=== PATIENT | male | born 1930 | race American Indian/Alaskan Native ===

== ENCOUNTER 2016-10-29 09:16 | Inpatient (IN) | payer MEDICARE ==
[2016-10-29 10:21] LABS: Hematocrit 30.2 % (35.5-45.6); Hemoglobin 9.6 gm/dl (11.8-15.2); Mean Corpuscular HGB Conc 32 % (32-34); Mean Corpuscular Volume 81 fl (84-94); Red Blood Count 3.74 M/mm3 (3.65-5.03); Red Cell Distribution Width 16.6 % (13.2-15.2)
[2016-10-29 10:23] LABS: Mean Corpuscular Hemoglobin 26 pg (28-32); Platelet Count 251 K/mm3 (140-440); White Blood Count 9.3 K/mm3 (4.5-11.0)
[2016-10-29 10:37] LABS: Alanine Aminotransferase 6 units/L (7-56); Albumin 3.8 g/dL (3.9-5); Albumin/Globulin Ratio 1.1 %; Alkaline Phosphatase 99 units/L (35-129); Anion Gap 19 mmol/L; BUN/Creatinine Ratio 9.09; Blood Urea Nitrogen 10 mg/dL (9-20); Calcium 9.2 mg/dL (8.4-10.2); Carbon Dioxide 24 mmol/L (22-30); Chloride 104.8 mmol/L (98-107); Glucose 103 mg/dL (75-100); Sodium 144 mmol/L (137-145); Total Protein 7.4 g/dL (6.3-8.2)
[2016-10-29 10:55] LABS: Anisocytosis 1+; Basophils % (Manual) 0 % (0.0-1.8); Blastocytes % (Manual) 0 %
[2016-10-29 10:56] LABS: Poikilocytosis 1+
[2016-10-29 10:58] LABS: Acanthocytes 1+; Burr Cells Few; Diff Status Complete; Elliptocytes 1+; Helmet Cells Few; Ovalocytes Few
[2016-10-29 11:07] LABS: Urine Drugs of Abuse Note Disclamer
[2016-10-29 11:13] LABS: Bilirubin,Urine NEG (Negative); Blood,Urine NEG (Negative); Ketones,Urine NEG (Negative); Leukocyte Esterase,Urine NEG (Negative); Mucus,Urine FEW /HPF; Nitrite,Urine NEG (Negative); Protein,Urine <15 mg/dL mg/dL (Negative); Urobilinogen,Urine < 2.0 mg/dL (<2.0); WBC,Urine < 1.0 /HPF (0.0-6.0)
--- NOTE | 2016-10-29 11:16 | Emergency Department Report ---
ED General Adult HPI - General Chief complaint: Syncope Stated complaint: HEADACHE/DIZZY Time Seen by Provider: 10/29/16 10:21 Source: EMS Mode of arrival: Stretcher Limitations: No Limitations - History of Present Illness Initial comments: He patient was transported via EMS. According to the triage note the patient had a syncopal or there syncopal event. Per the EMS patient care record, his chief complaint was a headache. On arrival he is not complaining of a headache at all. However, he states he does have frequent headaches. His complaint now is that he is weak and it's difficult for him to walk. Apparently this is been the case for quite some time. He references a recent admission to [facility] where apparently after hospitalization he was referred to rehabilitation. At this time he states that he lives with family. He was found with the presence of multiple bedbugs. His family did not present to the emergency department as of yet. He largely has no active complaints at this time. The patient is able to inform me if he had a syncopal episode or not. -: month(s) Location: head (none frequent headaches no significant headache at this time) Consistency: intermittent Associated Symptoms: denies other symptoms - Related Data Home Medications Medication Instructions Recorded Confirmed Last Taken Aspirin [Baby Aspirin] 81 mg PO QDAY 04/18/13 10/29/16 04/17/13 08:00 Sitagliptin Phos/Metformin HCl 1 tab PO QDAY 04/18/13 10/29/16 04/17/13 08:00 [Janumet XR 100-1,000 mg] amLODIPine [Norvasc] 10 mg PO DAILY 04/18/13 10/29/16 04/17/13 08:00 Previous Rx's Medication Instructions Recorded Last Taken Type Clotrimazole [Itch Relief] 15 gm TP BID 28 Days 11/29/15 Unknown Rx Polyethylene Glycol 3350 [Miralax 17 gm PO QDAY #20 packet 08/07/16 Unknown Rx 3350] Allergies Allergy/AdvReac Type Severity Reaction Status Date / Time No Known Allergies Allergy Verified 02/22/15 22:04 ED Review of Systems ROS: Stated complaint: HEADACHE/DIZZY Other details as noted in HPI Comment: Unobtainable due to pts medical conditions (Limited secondary to age but no active complaints) ED Past Medical Hx - Past Medical History Previous Medical History?: Yes Hx Hypertension: Yes Hx Diabetes: Yes Additional medical history: chronic back pain. BED BUGS - Surgical History Past Surgical History?: Yes Additional Surgical History: hernia repair - Social History Smoking Status: Never Smoker Substance Use Type: None - Medications Home Medications: Home Medications Medication Instructions Recorded Confirmed Last Taken Type Aspirin [Baby Aspirin] 81 mg PO QDAY 04/18/13 10/29/16 04/17/13 08:00 History Sitagliptin Phos/Metformin HCl 1 tab PO QDAY 04/18/13 10/29/16 04/17/13 08:00 History [Janumet XR 100-1,000 mg] amLODIPine [Norvasc] 10 mg PO DAILY 04/18/13 10/29/16 04/17/13 08:00 History Clotrimazole [Itch Relief] 15 gm TP BID 28 Days 11/29/15 10/29/16 Unknown Rx Polyethylene Glycol 3350 [Miralax 17 gm PO QDAY #20 packet 08/07/16 10/29/16 Unknown Rx 3350] ED Physical Exam - General Limitations: No Limitations General appearance: alert, in no apparent distress - Head Head exam: Present: atraumatic, normocephalic - Eye Eye exam: Present: normal appearance. Absent: scleral icterus - ENT ENT exam: Present: normal exam, mucous membranes moist - Neck Neck exam: Present: normal inspection. Absent: tenderness, meningismus - Respiratory Respiratory exam: Present: normal lung sounds bilaterally. Absent: respiratory distress - Cardiovascular Cardiovascular Exam: Present: regular rate, normal rhythm. Absent: systolic murmur, diastolic murmur, rubs, gallop - GI/Abdominal GI/Abdominal exam: Present: soft, normal bowel sounds. Absent: distended, tenderness, guarding, rebound, rigid - Rectal Rectal exam: Present: deferred - Extremities Exam Extremities exam: Present: normal inspection - Back Exam Back exam: Present: normal inspection - Neurological Exam Neurological exam: Present: alert, oriented X3, CN II-XII intact. Absent: motor sensory deficit - Psychiatric Psychiatric exam: Present: normal affect, normal mood - Skin Skin exam: Present: warm, dry, intact, normal color, other (presence of bedbugs noted on clothing.). Absent: rash ED Course Vital Signs 10/29/16 10/29/16 10/29/16 09:35 15:48 15:50 Temperature 98.6 F Pulse Rate 96 H 88 Respiratory 20 18 18 Rate Blood Pressure 126/76 Blood Pressure 147/82 [Left] O2 Sat by Pulse 98 Oximetry - Reevaluation(s) Reevaluation #1: 10/29/16 11:15 Patient is referred to case management. He is been isolated due to the presence of bedbugs. The manager case stated that he was unable to find the patient's family. He also stated that the patient had requested admission and transfer to a shelter. In consideration of his possible syncope he is admitted for further medical evaluation and possible shelter transfer. 10/29/16 18:15 Reevaluation #2: Discussed with Dr. Whatley. A CT the head was ordered further workup and review of data per Dr. Whatley. The patient was admitted to the hospitalist service. 10/29/16 18:18 ED Medical Decision Making - Lab Data Result diagrams: 10/29/16 09:46 10/29/16 09:46 Laboratory Results - last 24 hr 10/29/16 10/29/16 10/29/16 09:46 09:46 09:46 WBC 9.3 RBC 3.74 Hgb 9.6 L Hct 30.2 L MCV 81 L MCH 26 L MCHC 32 RDW 16.6 H Plt Count 251 Add Manual Diff Complete Total Counted 100 Seg Neuts % (Manual) 76.0 H Band Neutrophils % 1.0 Lymphocytes % (Manual) 20.0 Reactive Lymphs % (Man) 0 Monocytes % (Manual) 1.0 Eosinophils % (Manual) 2.0 Basophils % (Manual) 0 Metamyelocytes % 0 Myelocytes % 0 Promyelocytes % 0 Blast Cells % 0 Nucleated RBC % Not Reportable Seg Neutrophils # Man 7.1 Band Neutrophils # 0.1 Lymphocytes # (Manual) 1.9 Abs React Lymphs (Man) 0.0 Monocytes # (Manual) 0.1 Eosinophils # (Manual) 0.2 Basophils # (Manual) 0.0 Metamyelocytes # 0.0 Myelocytes # 0.0 Promyelocytes # 0.0 Blast Cells # 0.0 WBC Morphology Not Reportable Hypersegmented Neuts Not Reportable Hyposegmented Neuts Not Reportable Hypogranular Neuts Not Reportable Smudge Cells Not Reportable Toxic Granulation Not Reportable Toxic Vacuolation Not Reportable Dohle Bodies Not Reportable Pelger-Huet Anomaly Not Reportable Kristine Rods Not Reportable Platelet Estimate Appears normal Clumped Platelets Not Reportable Plt Clumps, EDTA Not Reportable Large Platelets Not Reportable Giant Platelets Not Reportable Platelet Satelliting Not Reportable Plt Morphology Comment Not Reportable RBC Morphology Not Reportable Dimorphic RBCs Not Reportable Polychromasia Not Reportable Hypochromasia Not Reportable Poikilocytosis 1+ Anisocytosis 1+ Microcytosis Not Reportable Macrocytosis Not Reportable Spherocytes Not Reportable Pappenheimer Bodies Not Reportable Sickle Cells Not Reportable Target Cells Not Reportable Tear Drop Cells Not Reportable Ovalocytes Few Helmet Cells Few [place] Bodies Not Reportable [place] Rings Not Reportable Lisbet Cells Few Bite Cells Not Reportable Crenated Cell Not Reportable Elliptocytes 1+ Acanthocytes (Spur) 1+ Rouleaux Not Reportable Hemoglobin C Crystals Not Reportable Schistocytes Not Reportable Malaria parasites Not Reportable Reji Bodies Not Reportable Hem Pathologist Commnt No Sodium 144 Potassium 4.0 Chloride 104.8 Carbon Dioxide 24 Anion Gap 19 BUN 10 Creatinine 1.1 Estimated GFR > 60 BUN/Creatinine Ratio 9.09 Glucose 103 H Lactic Acid 1.20 Calcium 9.2 Magnesium 2.00 Total Bilirubin 0.30 AST 14 ALT 6 L Alkaline Phosphatase 99 Total Protein 7.4 Albumin 3.8 L Albumin/Globulin Ratio 1.1 TSH Urine Color Urine Turbidity Urine pH Ur Specific [place] Urine Protein Urine Glucose (UA) Urine Ketones Urine Blood Urine Nitrite Urine Bilirubin Urine Urobilinogen Ur Leukocyte Esterase Urine WBC (Auto) Urine RBC (Auto) Urine Mucus Salicylates Urine Opiates Screen Urine Methadone Screen Acetaminophen Ur Barbiturates Screen Ur Phencyclidine Scrn Ur Amphetamines Screen U Benzodiazepines Scrn Urine Cocaine Screen U Marijuana (THC) Screen Drugs of Abuse Note Plasma/Serum Alcohol 10/29/16 10/29/16 10/29/16 09:46 09:46 09:46 WBC RBC Hgb Hct MCV MCH MCHC RDW Plt Count Add Manual Diff Total Counted Seg Neuts % (Manual) Band Neutrophils % Lymphocytes % (Manual) Reactive Lymphs % (Man) Monocytes % (Manual) Eosinophils % (Manual) Basophils % (Manual) Metamyelocytes % Myelocytes % Promyelocytes % Blast Cells % Nucleated RBC % Seg Neutrophils # Man Band Neutrophils # Lymphocytes # (Manual) Abs React Lymphs (Man) Monocytes # (Manual) Eosinophils # (Manual) Basophils # (Manual) Metamyelocytes # Myelocytes # Promyelocytes # Blast Cells # WBC Morphology Hypersegmented Neuts Hyposegmented Neuts Hypogranular Neuts Smudge Cells Toxic Granulation Toxic Vacuolation Dohle Bodies Pelger-Huet Anomaly Kristine Rods Platelet Estimate Clumped Platelets Plt Clumps, EDTA Large Platelets Giant Platelets Platelet Satelliting Plt Morphology Comment RBC Morphology Dimorphic RBCs Polychromasia Hypochromasia Poikilocytosis Anisocytosis Microcytosis Macrocytosis Spherocytes Pappenheimer Bodies Sickle Cells Target Cells Tear Drop Cells Ovalocytes Helmet Cells [place]illa-[place] Bodies [place] Rings Lisbet Cells Bite Cells Crenated Cell Elliptocytes Acanthocytes (Spur) Rouleaux Hemoglobin C Crystals Schistocytes Malaria parasites Reji Bodies Hem Pathologist Commnt Sodium Potassium Chloride Carbon Dioxide Anion Gap BUN Creatinine Estimated GFR BUN/Creatinine Ratio Glucose Lactic Acid Calcium Magnesium Total Bilirubin AST ALT Alkaline Phosphatase Total Protein Albumin Albumin/Globulin Ratio TSH 1.160 Urine Color Urine Turbidity Urine pH Ur Specific [place] Urine Protein Urine Glucose (UA) Urine Ketones Urine Blood Urine Nitrite Urine Bilirubin Urine Urobilinogen Ur Leukocyte Esterase Urine WBC (Auto) Urine RBC (Auto) Urine Mucus Salicylates < 0.3 L Urine Opiates Screen Urine Methadone Screen Acetaminophen < 15.0 Ur Barbiturates Screen Ur Phencyclidine Scrn Ur Amphetamines Screen U Benzodiazepines Scrn Urine Cocaine Screen U Marijuana (THC) Screen Drugs of Abuse Note Plasma/Serum Alcohol 10/29/16 10/29/16 10/29/16 09:46 11:01 11:01 WBC RBC Hgb Hct MCV MCH MCHC RDW Plt Count Add Manual Diff Total Counted Seg Neuts % (Manual) Band Neutrophils % Lymphocytes % (Manual) Reactive Lymphs % (Man) Monocytes % (Manual) Eosinophils % (Manual) Basophils % (Manual) Metamyelocytes % Myelocytes % Promyelocytes % Blast Cells % Nucleated RBC % Seg Neutrophils # Man Band Neutrophils # Lymphocytes # (Manual) Abs React Lymphs (Man) Monocytes # (Manual) Eosinophils # (Manual) Basophils # (Manual) Metamyelocytes # Myelocytes # Promyelocytes # Blast Cells # WBC Morphology Hypersegmented Neuts Hyposegmented Neuts Hypogranular Neuts Smudge Cells Toxic Granulation Toxic Vacuolation Dohle Bodies Pelger-Huet Anomaly Kristine Rods Platelet Estimate Clumped Platelets Plt Clumps, EDTA Large Platelets Giant Platelets Platelet Satelliting Plt Morphology Comment RBC Morphology Dimorphic RBCs Polychromasia Hypochromasia Poikilocytosis Anisocytosis Microcytosis Macrocytosis Spherocytes Pappenheimer Bodies Sickle Cells Target Cells Tear Drop Cells Ovalocytes Helmet Cells Chinchilla-[place] Bodies [place] Rings [place] Cells Bite Cells Crenated Cell Elliptocytes Acanthocytes (Spur) Rouleaux Hemoglobin C Crystals Schistocytes Malaria parasites Reji Bodies Hem Pathologist Commnt Sodium Potassium Chloride Carbon Dioxide Anion Gap BUN Creatinine Estimated GFR BUN/Creatinine Ratio Glucose Lactic Acid Calcium Magnesium Total Bilirubin AST ALT Alkaline Phosphatase Total Protein Albumin Albumin/Globulin Ratio TSH Urine Color Yellow Urine Turbidity Clear Urine pH 6.0 Ur Specific [place] 1.013 Urine Protein <15 mg/dl Urine Glucose (UA) Neg Urine Ketones Neg Urine Blood Neg Urine Nitrite Neg Urine Bilirubin Neg Urine Urobilinogen < 2.0 Ur Leukocyte Esterase Neg Urine WBC (Auto) < 1.0 Urine RBC (Auto) 1.0 Urine Mucus Few Salicylates Urine Opiates Screen Presumptive negative Urine Methadone Screen Presumptive negative Acetaminophen Ur Barbiturates Screen Presumptive positive Ur Phencyclidine Scrn Presumptive negative Ur Amphetamines Screen Presumptive negative U Benzodiazepines Scrn Presumptive negative Urine Cocaine Screen Presumptive negative U Marijuana (THC) Screen Presumptive negative Drugs of Abuse Note Disclamer Plasma/Serum Alcohol < 0.01 - EKG Data -: EKG Interpreted by Md EKG shows normal: sinus rhythm, axis, intervals, QRS complexes, ST-T waves Rate: normal - EKG Data Interpretation: no acute changes Critical care attestation.: If time is entered above; I have spent that time in minutes in the direct care of this critically ill patient, excluding procedure time. ED Disposition Clinical Impression: Bed confinement status Syncope Qualifiers: Syncope type: unspecified Qualified Code(s): R55 - Syncope and collapse Anemia Qualifiers: Anemia type: unspecified type Qualified Code(s): D64.9 - Anemia, unspecified Dementia Qualifiers: Dementia type: Alzheimer's disease Alzheimer's disease onset: unspecified onset Dementia behavioral disturbance: without behavioral disturbance Qualified Code(s): G30.9 - Alzheimer's disease, unspecified; F02.80 - Dementia in other diseases classified elsewhere without behavioral disturbance Disposition: DISCHARGED TO HOME OR SELFCARE Is pt being admited?: Yes Does the pt Need Aspirin: Yes Condition: Stable Time of Disposition: 18:17
--- NOTE | 2016-10-29 13:45 | Admit Criteria Form ---
Admission Criteria Documentation: SYNCOPE Clinical Indications for Admission to Inpatient Care ( Place 'X' for any and all applicable criteria): Admission is indicated for syncope and ANY ONE of the following (1)(2)(3)(4)(5) (6)(7) : [X ]I. Inpatient admission required rather than observation care (Also use Syncope: Observation Care Criteria as appropriate) because of ANY ONE of the following: [ ]a) Hemodynamic instability that is severe or persistent [ ]b) Cardiac arrhythmias of immediate concern identified or strongly suspected (eg, needs electrophysiologic study) [ ]c) Acute coronary syndrome identified (Also use Myocardial Infarction or Angina Criteria form ) [ ]d) Structural cardiac disorder (eg, aortic stenosis) suspected as cause that requires immediate correction [ ]e) Respiratory symptoms (eg, dyspnea, tachypnea) that are severe or persistent [ ]f) Neurologic signs or symptoms that are severe or persistent ( eg, stroke, seizures, altered mental status) [ ]g) Severe electrolyte abnormalities requiring inpatient care [ ]h) Supplemental oxygen or respiratory treatment for over 24 hrs that are performable only in acute inpatient setting [ ]i) IV fluid to replace significant ongoing (eg, for over 24 hrs ) losses (>3 L/m2 per day) [ ]j) Continuous intravenous infusion of anticoagulation, platelet inhibitor, vasoactive, or antiarrhythmic medication(15)(16) [ ]k) Pulmonary artery catheter monitoring [ ]l) Temporary pacemaker placement(17) [ ]m) Emergent cardioversion(18) [ X]n) Other conditions, treatment or monitoring requiring inpatient admission [ ]II. Suspicion of imminently dangerous cause (eg, rare causes like pericardial tamponade, pulmonary embolism) [ ]III. Syncope causing severe injury requiring hospitalization Extended stay beyond goal length of stay may be needed for(28) [ ]a) Dangerous arrhythmia(15)(23)(27)(29) [ ]b) Myocardial ischemia [ ]c) Seizure disorder [ ]d) Syncope-related injuries The original [employer] content created by [employer] has been revised. The portions of the content which have been revised are identified through the use of italic text or in bold, and [employer] has neither reviewed nor approved the modified material. All other unmodified content is copyright [employer]. Please see references footnoted in the original [facility] edition 2016 Admission Criteria Met: Yes
[2016-10-29] MEDS ORDERED: NACL 0.9% 1000 ML 1,000 ML IV ONE (15:19)
[2016-10-29] MEDS ORDERED: DULCOLAX PR PRN (15:54)
[2016-10-29] MEDS ORDERED: MILK OF MAGNESIA PO PRN (15:54)
[2016-10-29] MEDS ORDERED: ZOFRAN IV PRN (15:54)
--- NOTE | 2016-10-29 16:19 | History and Physical Report ---
History of Present Illness Date of examination: 10/29/16 Date of admission: 10/29/2016 Chief complaint: Syncope History of present illness: Patient 86 years old with Hx of HTN, DM, and Dementia. Patient sates that when he was in the kitchen making a sandwich, At that time he felt dizzy. He described the dizziness as feeling like he was going to pass out. He doesn't remember what happened. No one was home at the time to witness. patient has dementia therefore a poor historian. Past History Past Medical History: diabetes, hypertension, other (Dementia) Medications and Allergies Allergies Allergy/AdvReac Type Severity Reaction Status Date / Time No Known Allergies Allergy Verified 02/22/15 22:04 Home Medications Medication Instructions Recorded Confirmed Last Taken Type Aspirin [Baby Aspirin] 81 mg PO QDAY 04/18/13 10/29/16 04/17/13 08:00 History Sitagliptin Phos/Metformin HCl 1 tab PO QDAY 04/18/13 10/29/16 04/17/13 08:00 History [Janumet XR 100-1,000 mg] amLODIPine [Norvasc] 10 mg PO DAILY 04/18/13 10/29/16 04/17/13 08:00 History Clotrimazole [Itch Relief] 15 gm TP BID 28 Days 11/29/15 10/29/16 Unknown Rx Polyethylene Glycol 3350 [Miralax 17 gm PO QDAY #20 packet 08/07/16 10/29/16 Unknown Rx 3350] Active Meds: Active Medications Amlodipine Besylate (Norvasc) 10 mg PO DAILY DON Aspirin (Baby Aspirin) 81 mg PO QDAY DON Clotrimazole (Lotrimin) 1 applic TP BID [facility] Sodium Chloride (Nacl 0.9% 1000 Ml) 1,000 mls @ 125 mls/hr IV ONCE ONE Stop: 10/29/16 23:18 Linagliptin (Tradjenta) 5 mg PO QDAY DON Metformin HCl (Glucophage Xr) 1,000 mg PO QDDIAB DON Polyethylene Glycol (Miralax 3350) 17 gm PO QDAY [facility] Review of Systems Constitutional: no weight loss, no weight gain, no fever, no chills Ears, nose, mouth and throat: vertigo, no ear discharge, no tinnitis Cardiovascular: no chest pain, no orthopnea, no palpitations, no syncope, no lightheadedness Respiratory: no cough, no cough with sputum, no excessive sputum Gastrointestinal: no abdominal pain, no nausea, no vomiting, no diarrhea Genitourinary Male: no dysuria, no hematuria, no flank pain Musculoskeletal: no neck stiffness, no neck pain, no shooting arm pain Integumentary: no rash, no pruritis, no redness Neurological: lack of coordination, no head injury, no transient paralysis Psychiatric: no memory loss Endocrine: no cold intolerance, no heat intolerance Hematologic/Lymphatic: no easy bruising, no easy bleeding Allergic/Immunologic: no urticaria, no allergic rhinitis Exam - Constitutional Vitals: Temp Pulse Resp BP Pulse Ox 98.6 F 88 18 147/82 98 10/29/16 09:35 10/29/16 15:48 10/29/16 15:50 10/29/16 15:48 10/29/16 09:35 General appearance: Absent: no acute distress - EENT Eyes: Present: PERRL, EOM intact ENT: hearing intact, clear oral mucosa, dentition normal - Neck Neck: Present: supple, normal ROM - Respiratory Respiratory effort: normal - Cardiovascular Heart Sounds: Present: S1 & S2 - Extremities Extremities: pulses symmetrical, No edema - Abdominal General gastrointestinal: Present: soft, non-tender Male genitourinary: Present: deferred - Rectal Rectal Exam: deferred - Integumentary Integumentary: Present: clear, warm, dry - Musculoskeletal Musculoskeletal: right sided weakness, generalized weakness - Psychiatric Psychiatric: appropriate mood/affect - Neurologic Neurologic: CNII-XII intact, moves all extremities Results - Labs CBC & Chem 7: 10/29/16 09:46 10/29/16 09:46 Labs: Laboratory Last Values WBC 9.3 K/mm3 (4.5-11.0) 10/29/16 09:46 RBC 3.74 M/mm3 (3.65-5.03) 10/29/16 09:46 Hgb 9.6 gm/dl (11.8-15.2) L 10/29/16 09:46 Hct 30.2 % (35.5-45.6) L 10/29/16 09:46 MCV 81 fl (84-94) L 10/29/16 09:46 MCH 26 pg (28-32) L 10/29/16 09:46 MCHC 32 % (32-34) 10/29/16 09:46 RDW 16.6 % (13.2-15.2) H 10/29/16 09:46 Plt Count 251 K/mm3 (140-440) 10/29/16 09:46 Add Manual Diff Complete 10/29/16 09:46 Total Counted 100 10/29/16 09:46 Seg Neuts % (Manual) 76.0 % (40.0-70.0) H 10/29/16 09:46 Band Neutrophils % 1.0 % 10/29/16 09:46 Lymphocytes % (Manual) 20.0 % (13.4-35.0) 10/29/16 09:46 Reactive Lymphs % (Man) 0 % 10/29/16 09:46 Monocytes % (Manual) 1.0 % (0.0-7.3) 10/29/16 09:46 Eosinophils % (Manual) 2.0 % (0.0-4.3) 10/29/16 09:46 Basophils % (Manual) 0 % (0.0-1.8) 10/29/16 09:46 Metamyelocytes % 0 % 10/29/16 09:46 Myelocytes % 0 % 10/29/16 09:46 Promyelocytes % 0 % 10/29/16 09:46 Blast Cells % 0 % 10/29/16 09:46 Nucleated RBC % Not Reportable 10/29/16 09:46 Seg Neutrophils # Man 7.1 K/mm3 (1.8-7.7) 10/29/16 09:46 Band Neutrophils # 0.1 K/mm3 10/29/16 09:46 Lymphocytes # (Manual) 1.9 K/mm3 (1.2-5.4) 10/29/16 09:46 Abs React Lymphs (Man) 0.0 K/mm3 10/29/16 09:46 Monocytes # (Manual) 0.1 K/mm3 (0.0-0.8) 10/29/16 09:46 Eosinophils # (Manual) 0.2 K/mm3 (0.0-0.4) 10/29/16 09:46 Basophils # (Manual) 0.0 K/mm3 (0.0-0.1) 10/29/16 09:46 Metamyelocytes # 0.0 K/mm3 10/29/16 09:46 Myelocytes # 0.0 K/mm3 10/29/16 09:46 Promyelocytes # 0.0 K/mm3 10/29/16 09:46 Blast Cells # 0.0 K/mm3 10/29/16 09:46 WBC Morphology Not Reportable 10/29/16 09:46 Hypersegmented Neuts Not Reportable 10/29/16 09:46 Hyposegmented Neuts Not Reportable 10/29/16 09:46 Hypogranular Neuts Not Reportable 10/29/16 09:46 Smudge Cells Not Reportable 10/29/16 09:46 Toxic Granulation Not Reportable 10/29/16 09:46 Toxic Vacuolation Not Reportable 10/29/16 09:46 Dohle Bodies Not Reportable 10/29/16 09:46 Pelger-Huet Anomaly Not Reportable 10/29/16 09:46 Kristine Rods Not Reportable 10/29/16 09:46 Platelet Estimate Appears normal 10/29/16 09:46 Clumped Platelets Not Reportable 10/29/16 09:46 Plt Clumps, EDTA Not Reportable 10/29/16 09:46 Large Platelets Not Reportable 10/29/16 09:46 Giant Platelets Not Reportable 10/29/16 09:46 Platelet Satelliting Not Reportable 10/29/16 09:46 Plt Morphology Comment Not Reportable 10/29/16 09:46 RBC Morphology Not Reportable 10/29/16 09:46 Dimorphic RBCs Not Reportable 10/29/16 09:46 Polychromasia Not Reportable 10/29/16 09:46 Hypochromasia Not Reportable 10/29/16 09:46 Poikilocytosis 1+ 10/29/16 09:46 Anisocytosis 1+ 10/29/16 09:46 Microcytosis Not Reportable 10/29/16 09:46 Macrocytosis Not Reportable 10/29/16 09:46 Spherocytes Not Reportable 10/29/16 09:46 Pappenheimer Bodies Not Reportable 10/29/16 09:46 Sickle Cells Not Reportable 10/29/16 09:46 Target Cells Not Reportable 10/29/16 09:46 Tear Drop Cells Not Reportable 10/29/16 09:46 Ovalocytes Few 10/29/16 09:46 Helmet Cells Few 10/29/16 09:46 Chinchilla-[place] Bodies Not Reportable 10/29/16 09:46 [place] Rings Not Reportable 10/29/16 09:46 Lisbet Cells Few 10/29/16 09:46 Bite Cells Not Reportable 10/29/16 09:46 Crenated Cell Not Reportable 10/29/16 09:46 Elliptocytes 1+ 10/29/16 09:46 Acanthocytes (Spur) 1+ 10/29/16 09:46 Rouleaux Not Reportable 10/29/16 09:46 Hemoglobin C Crystals Not Reportable 10/29/16 09:46 Schistocytes Not Reportable 10/29/16 09:46 Malaria parasites Not Reportable 10/29/16 09:46 Reji Bodies Not Reportable 10/29/16 09:46 Hem Pathologist Commnt No 10/29/16 09:46 Sodium 144 mmol/L (137-145) 10/29/16 09:46 Potassium 4.0 mmol/L (3.6-5.0) 10/29/16 09:46 Chloride 104.8 mmol/L (98-107) 10/29/16 09:46 Carbon Dioxide 24 mmol/L (22-30) 10/29/16 09:46 Anion Gap 19 mmol/L 10/29/16 09:46 BUN 10 mg/dL (9-20) 10/29/16 09:46 Creatinine 1.1 mg/dL (0.8-1.5) 10/29/16 09:46 Estimated GFR > 60 ml/min 10/29/16 09:46 BUN/Creatinine Ratio 9.09 % 10/29/16 09:46 Glucose 103 mg/dL (75-100) H 10/29/16 09:46 Lactic Acid 1.20 mmol/L (0.7-2.0) 10/29/16 09:46 Calcium 9.2 mg/dL (8.4-10.2) 10/29/16 09:46 Magnesium 2.00 mg/dL (1.7-2.3) 10/29/16 09:46 Total Bilirubin 0.30 mg/dL (0.1-1.2) 10/29/16 09:46 AST 14 units/L (5-40) 10/29/16 09:46 ALT 6 units/L (7-56) L 10/29/16 09:46 Alkaline Phosphatase 99 units/L (35-129) 10/29/16 09:46 Total Protein 7.4 g/dL (6.3-8.2) 10/29/16 09:46 Albumin 3.8 g/dL (3.9-5) L 10/29/16 09:46 Albumin/Globulin Ratio 1.1 % 10/29/16 09:46 TSH 1.160 mlU/mL (0.270-4.200) 10/29/16 09:46 Urine Color Yellow (Yellow) 10/29/16 11:01 Urine Turbidity Clear (Clear) 10/29/16 11:01 Urine pH 6.0 (5.0-7.0) 10/29/16 11:01 Ur Specific [place] 1.013 (1.003-1.030) 10/29/16 11:01 Urine Protein <15 mg/dl mg/dL (Negative) 10/29/16 11:01 Urine Glucose (UA) Neg mg/dL (Negative) 10/29/16 11:01 Urine Ketones Neg mg/dL (Negative) 10/29/16 11:01 Urine Blood Neg (Negative) 10/29/16 11:01 Urine Nitrite Neg (Negative) 10/29/16 11:01 Urine Bilirubin Neg (Negative) 10/29/16 11:01 Urine Urobilinogen < 2.0 mg/dL (<2.0) 10/29/16 11:01 Ur Leukocyte Esterase Neg (Negative) 10/29/16 11:01 Urine WBC (Auto) < 1.0 /HPF (0.0-6.0) 10/29/16 11:01 Urine RBC (Auto) 1.0 /HPF (0.0-6.0) 10/29/16 11:01 Urine Mucus Few /HPF 10/29/16 11:01 Salicylates < 0.3 mg/dL (2.8-20.0) L 10/29/16 09:46 Urine Opiates Screen Presumptive negative 10/29/16 11:01 Urine Methadone Screen Presumptive negative 10/29/16 11:01 Acetaminophen < 15.0 ug/mL (10.0-30.0) 10/29/16 09:46 Ur Barbiturates Screen Presumptive positive 10/29/16 11:01 Ur Phencyclidine Scrn Presumptive negative 10/29/16 11:01 Ur Amphetamines Screen Presumptive negative 10/29/16 11:01 U Benzodiazepines Scrn Presumptive negative 10/29/16 11:01 Urine Cocaine Screen Presumptive negative 10/29/16 11:01 U Marijuana (THC) Screen Presumptive negative 10/29/16 11:01 Drugs of Abuse Note Disclamer 10/29/16 11:01 Plasma/Serum Alcohol < 0.01 gm% (0-0.07) 10/29/16 09:46 Assessment and Plan Assessment and plan: ASSESSMENT/PLAN 1. Autonomic imbalance Will be admit to Med-Surg unit CT the head pending VL Carotid pending Will continue to monitor 2.Diabetes Mellitus Accu-Chek AC/HS on sliding scale Insulin/Novolog Diet as tolerated 3. Sciatica of right side Physical Therapy consulted Occupational therapy consulted 4. Bed-Bugs Patient placed on contact isolation Discussed with the patient on information on bed bug detection, prevention, and control Consulted to case management for placement DVT propylexiex started on Lovenox Patient full code
[2016-10-29] MEDS ORDERED: D50W (25GM) IV PRN (16:48)
[2016-10-29] MEDS ORDERED: LOVENOX SUB-Q ONE ×2 (16:51→18:20)
[2016-10-29] MEDS ORDERED: NORVASC ONE (18:20)
[2016-10-29] MEDS ORDERED: BABY ASPIRIN ONE (18:20)
[2016-10-29] MEDS: BABY ASPIRIN PO SCH (18:30)
[2016-10-29] MEDS: NORVASC PO SCH (18:30)
[2016-10-29] MEDS: LOTRIMIN TP SCH (22:34)
[2016-10-29] MEDS: NACL 0.9% 1000 ML 1,000 ML IV SCH (22:44)
--- NOTE | 2016-10-30 02:14 | Cat Scan Report ---
FINAL REPORT PROCEDURE: CT HEAD/BRAIN WO CON TECHNIQUE: Computerized tomography of the head was performed without contrast material. HISTORY: headache,syncope COMPARISON: 07/02/2014 FINDINGS: Skull and scalp: Normal. Paranasal sinuses: There is opacification of the left sphenoid sinus. Ventricles and subarachnoid spaces: Normal. Cerebrum: No evidence of hemorrhage, acute infarction or mass. Mild atrophy. Mild periventricular deep white matter change.. Cerebellum and brainstem: No evidence of hemorrhage, acute infarction or mass. Vasculature: Normal. Comments: None. IMPRESSION: There is no evidence of an acute intracranial process. Mild atrophy and periventricular deep white matter change.
[2016-10-30] MEDS: NOVOLOG SUB-Q SCH ×3 (07:34→17:00)
[2016-10-30 08:26] LABS: Basophils % (Auto) 0.5 % (0.0-1.8); Eosinophils % (Auto) 1.3 % (0.0-4.3); Hematocrit 27.3 % (35.5-45.6); Hemoglobin 8.7 gm/dl (11.8-15.2); Mean Corpuscular HGB Conc 32 % (32-34); Mean Corpuscular Volume 79 fl (84-94); Platelet Count 243 K/mm3 (140-440); Red Blood Count 3.45 M/mm3 (3.65-5.03); Red Cell Distribution Width 16.5 % (13.2-15.2)
[2016-10-30 08:35] LABS: Mean Corpuscular Hemoglobin 25 pg (28-32)
[2016-10-30 08:45] LABS: Albumin 3.3 g/dL (3.9-5); Albumin/Globulin Ratio 1.1 %; Alkaline Phosphatase 73 units/L (35-129); Anion Gap 16 mmol/L; Blood Urea Nitrogen 10 mg/dL (9-20); Calcium 8.7 mg/dL (8.4-10.2); Carbon Dioxide 25 mmol/L (22-30); Chloride 106.5 mmol/L (98-107); Glucose 98 mg/dL (75-100); Potassium 4.1 mmol/L (3.6-5.0); Sodium 143 mmol/L (137-145); Total Protein 6.3 g/dL (6.3-8.2)
[2016-10-30 08:58] LABS: Alanine Aminotransferase < 5 units/L (7-56)
[2016-10-30] MEDS ORDERED: NON-FORMULARY (Sitagliptin Phos/Metformin Hcl [Janumet Xr 100-1,000 Mg] 1 TAB) PO SCH (10:00)
[2016-10-30] MEDS: LOTRIMIN TP SCH ×2 (10:03→21:25)
[2016-10-30] MEDS: MIRALAX 3350 PO SCH (10:04)
[2016-10-30] MEDS: TRADJENTA PO SCH (10:10)
[2016-10-30] MEDS: GLUCOPHAGE XR PO SCH (10:10)
[2016-10-30] MEDS: NORVASC PO SCH (10:11)
[2016-10-30] MEDS: BABY ASPIRIN PO SCH (10:12)
[2016-10-30] MEDS: TYLENOL PO PRN (11:18)
--- NOTE | 2016-10-30 15:53 | Progress Note ---
Assessment and Plan Assessment and plan: Patient 86-year-old man history of dementia who presents with syncopal episode -Syncope most likely vasovagal versus autonomic dysfunction of the elderly: PT OT -Dementia -Bed bug infestation For placement, knees 3 day hospital stay for Medicare placement History Interval history: Patient seen and examined. Follow up on syncope. Overnight uneventful. No cp, sob, n/v or severe headaches. Imaging, old records, testing, labs, nursing notes reviewed. Hospitalist Physical - Physical exam Narrative exam: GEN: Thin frail man NAD, AWAKE, ALERT, ORIENTATED 3 CVS: RRR, NORMAL S1S2 LUNGS/CHEST: CTA B, NORMAL CHEST EXPANSION B, GOOD AIR ENTRY B ABD: SOFT NTND, GBS, NO REBOUND OR GUARDING EXT/SKIN: NO SIGNIFICANT EDEMA OR RASH MSK: FROM X 4 EXTREMITIES NEURO: CN 2-12 GROSSLY INTACT, NO new FOCAL DEFICITS PSY: CALM - Constitutional Vitals: Temp Pulse Resp BP Pulse Ox 98.2 F 81 20 124/68 100 10/30/16 10:32 10/30/16 10:32 10/30/16 10:32 10/30/16 10:32 10/29/16 22:37 General appearance: Present: no acute distress Results - Labs CBC & Chem 7: 10/30/16 08:03 10/30/16 08:03 Labs: Laboratory Last Values WBC 6.0 K/mm3 (4.5-11.0) 10/30/16 08:03 RBC 3.45 M/mm3 (3.65-5.03) L 10/30/16 08:03 Hgb 8.7 gm/dl (11.8-15.2) L 10/30/16 08:03 Hct 27.3 % (35.5-45.6) L 10/30/16 08:03 MCV 79 fl (84-94) L 10/30/16 08:03 MCH 25 pg (28-32) L 10/30/16 08:03 MCHC 32 % (32-34) 10/30/16 08:03 RDW 16.5 % (13.2-15.2) H 10/30/16 08:03 Plt Count 243 K/mm3 (140-440) 10/30/16 08:03 Lymph % (Auto) 40.9 % (13.4-35.0) H 10/30/16 08:03 [place] % (Auto) 11.7 % (0.0-7.3) H 10/30/16 08:03 Eos % (Auto) 1.3 % (0.0-4.3) 10/30/16 08:03 Baso % (Auto) 0.5 % (0.0-1.8) 10/30/16 08:03 Lymph # 2.5 K/mm3 (1.2-5.4) 10/30/16 08:03 [place] # 0.7 K/mm3 (0.0-0.8) 10/30/16 08:03 Eos # 0.1 K/mm3 (0.0-0.4) 10/30/16 08:03 Baso # 0.0 K/mm3 (0.0-0.1) 10/30/16 08:03 Add Manual Diff Complete 10/29/16 09:46 Total Counted 100 10/29/16 09:46 Seg Neutrophils % 45.6 % (40.0-70.0) 10/30/16 08:03 Seg Neuts % (Manual) 76.0 % (40.0-70.0) H 10/29/16 09:46 Band Neutrophils % 1.0 % 10/29/16 09:46 Lymphocytes % (Manual) 20.0 % (13.4-35.0) 10/29/16 09:46 Reactive Lymphs % (Man) 0 % 10/29/16 09:46 Monocytes % (Manual) 1.0 % (0.0-7.3) 10/29/16 09:46 Eosinophils % (Manual) 2.0 % (0.0-4.3) 10/29/16 09:46 Basophils % (Manual) 0 % (0.0-1.8) 10/29/16 09:46 Metamyelocytes % 0 % 10/29/16 09:46 Myelocytes % 0 % 10/29/16 09:46 Promyelocytes % 0 % 10/29/16 09:46 Blast Cells % 0 % 10/29/16 09:46 Nucleated RBC % Not Reportable 10/29/16 09:46 Seg Neutrophils # 2.8 K/mm3 (1.8-7.7) 10/30/16 08:03 Seg Neutrophils # Man 7.1 K/mm3 (1.8-7.7) 10/29/16 09:46 Band Neutrophils # 0.1 K/mm3 10/29/16 09:46 Lymphocytes # (Manual) 1.9 K/mm3 (1.2-5.4) 10/29/16 09:46 Abs React Lymphs (Man) 0.0 K/mm3 10/29/16 09:46 Monocytes # (Manual) 0.1 K/mm3 (0.0-0.8) 10/29/16 09:46 Eosinophils # (Manual) 0.2 K/mm3 (0.0-0.4) 10/29/16 09:46 Basophils # (Manual) 0.0 K/mm3 (0.0-0.1) 10/29/16 09:46 Metamyelocytes # 0.0 K/mm3 10/29/16 09:46 Myelocytes # 0.0 K/mm3 10/29/16 09:46 Promyelocytes # 0.0 K/mm3 10/29/16 09:46 Blast Cells # 0.0 K/mm3 10/29/16 09:46 WBC Morphology Not Reportable 10/29/16 09:46 Hypersegmented Neuts Not Reportable 10/29/16 09:46 Hyposegmented Neuts Not Reportable 10/29/16 09:46 Hypogranular Neuts Not Reportable 10/29/16 09:46 Smudge Cells Not Reportable 10/29/16 09:46 Toxic Granulation Not Reportable 10/29/16 09:46 Toxic Vacuolation Not Reportable 10/29/16 09:46 Dohle Bodies Not Reportable 10/29/16 09:46 Pelger-Huet Anomaly Not Reportable 10/29/16 09:46 Kristine Rods Not Reportable 10/29/16 09:46 Platelet Estimate Appears normal 10/29/16 09:46 Clumped Platelets Not Reportable 10/29/16 09:46 Plt Clumps, EDTA Not Reportable 10/29/16 09:46 Large Platelets Not Reportable 10/29/16 09:46 Giant Platelets Not Reportable 10/29/16 09:46 Platelet Satelliting Not Reportable 10/29/16 09:46 Plt Morphology Comment Not Reportable 10/29/16 09:46 RBC Morphology Not Reportable 10/29/16 09:46 Dimorphic RBCs Not Reportable 10/29/16 09:46 Polychromasia Not Reportable 10/29/16 09:46 Hypochromasia Not Reportable 10/29/16 09:46 Poikilocytosis 1+ 10/29/16 09:46 Anisocytosis 1+ 10/29/16 09:46 Microcytosis Not Reportable 10/29/16 09:46 Macrocytosis Not Reportable 10/29/16 09:46 Spherocytes Not Reportable 10/29/16 09:46 Pappenheimer Bodies Not Reportable 10/29/16 09:46 Sickle Cells Not Reportable 10/29/16 09:46 Target Cells Not Reportable 10/29/16 09:46 Tear Drop Cells Not Reportable 10/29/16 09:46 Ovalocytes Few 10/29/16 09:46 Helmet Cells Few 10/29/16 09:46 Chinchilla-[place] Bodies Not Reportable 10/29/16 09:46 [place] Rings Not Reportable 10/29/16 09:46 Lisbet Cells Few 10/29/16 09:46 Bite Cells Not Reportable 10/29/16 09:46 Crenated Cell Not Reportable 10/29/16 09:46 Elliptocytes 1+ 10/29/16 09:46 Acanthocytes (Spur) 1+ 10/29/16 09:46 Rouleaux Not Reportable 10/29/16 09:46 Hemoglobin C Crystals Not Reportable 10/29/16 09:46 Schistocytes Not Reportable 10/29/16 09:46 Malaria parasites Not Reportable 10/29/16 09:46 Reji Bodies Not Reportable 10/29/16 09:46 Hem Pathologist Commnt No 10/29/16 09:46 Sodium 143 mmol/L (137-145) 10/30/16 08:03 Potassium 4.1 mmol/L (3.6-5.0) 10/30/16 08:03 Chloride 106.5 mmol/L (98-107) 10/30/16 08:03 Carbon Dioxide 25 mmol/L (22-30) 10/30/16 08:03 Anion Gap 16 mmol/L 10/30/16 08:03 BUN 10 mg/dL (9-20) 10/30/16 08:03 Creatinine 1.0 mg/dL (0.8-1.5) 10/30/16 08:03 Estimated GFR > 60 ml/min 10/30/16 08:03 BUN/Creatinine Ratio 10.00 % 10/30/16 08:03 Glucose 98 mg/dL (75-100) 10/30/16 08:03 POC Glucose 73 (70-105) 10/30/16 11:32 Lactic Acid 2.20 mmol/L (0.7-2.0) H* 10/29/16 20:59 Calcium 8.7 mg/dL (8.4-10.2) 10/30/16 08:03 Magnesium 2.00 mg/dL (1.7-2.3) 10/29/16 09:46 Total Bilirubin 0.20 mg/dL (0.1-1.2) 10/30/16 08:03 AST 10 units/L (5-40) 10/30/16 08:03 ALT < 5 units/L (7-56) L 10/30/16 08:03 Alkaline Phosphatase 73 units/L (35-129) 10/30/16 08:03 Total Protein 6.3 g/dL (6.3-8.2) 10/30/16 08:03 Albumin 3.3 g/dL (3.9-5) L 10/30/16 08:03 Albumin/Globulin Ratio 1.1 % 10/30/16 08:03 TSH 1.160 mlU/mL (0.270-4.200) 10/29/16 09:46 Urine Color Yellow (Yellow) 10/29/16 11:01 Urine Turbidity Clear (Clear) 10/29/16 11:01 Urine pH 6.0 (5.0-7.0) 10/29/16 11:01 Ur Specific [place] 1.013 (1.003-1.030) 10/29/16 11:01 Urine Protein <15 mg/dl mg/dL (Negative) 10/29/16 11:01 Urine Glucose (UA) Neg mg/dL (Negative) 10/29/16 11:01 Urine Ketones Neg mg/dL (Negative) 10/29/16 11:01 Urine Blood Neg (Negative) 10/29/16 11:01 Urine Nitrite Neg (Negative) 10/29/16 11:01 Urine Bilirubin Neg (Negative) 10/29/16 11:01 Urine Urobilinogen < 2.0 mg/dL (<2.0) 10/29/16 11:01 Ur Leukocyte Esterase Neg (Negative) 10/29/16 11:01 Urine WBC (Auto) < 1.0 /HPF (0.0-6.0) 10/29/16 11:01 Urine RBC (Auto) 1.0 /HPF (0.0-6.0) 10/29/16 11:01 Urine Mucus Few /HPF 10/29/16 11:01 Salicylates < 0.3 mg/dL (2.8-20.0) L 10/29/16 09:46 Urine Opiates Screen Presumptive negative 10/29/16 11:01 Urine Methadone Screen Presumptive negative 10/29/16 11:01 Acetaminophen < 15.0 ug/mL (10.0-30.0) 10/29/16 09:46 Ur Barbiturates Screen Presumptive positive 10/29/16 11:01 Ur Phencyclidine Scrn Presumptive negative 10/29/16 11:01 Ur Amphetamines Screen Presumptive negative 10/29/16 11:01 U Benzodiazepines Scrn Presumptive negative 10/29/16 11:01 Urine Cocaine Screen Presumptive negative 10/29/16 11:01 U Marijuana (THC) Screen Presumptive negative 10/29/16 11:01 Drugs of Abuse Note Disclamer 10/29/16 11:01 Plasma/Serum Alcohol < 0.01 gm% (0-0.07) 10/29/16 09:46
--- NOTE | 2016-10-30 20:45 | Event Note ---
Date: 10/30/16 Quinton william was called at 20:18 and i went the room and the patient was in asystole the patient was resucitated according to ACLS protocol but unfortunately we couldn't save the patient the patient has been coded repeatedly before.
--- NOTE | 2016-10-30 20:46 | Death Note ---
Note Date of : 10/30/16 Time of : 20:33 Time Pronounced: 20:33 - Preliminary Cause of (problem) (1) Asystole Preliminary cause of
[2016-10-30] MEDS: NACL 0.9% 1000 ML 1,000 ML IV SCH (21:24)
[2016-10-31] MEDS: GLUCOPHAGE XR PO SCH (09:02)
[2016-10-31] MEDS: TRADJENTA PO SCH (09:07)
[2016-10-31] MEDS: NORVASC PO SCH (09:10)
[2016-10-31] MEDS: NOVOLOG SUB-Q SCH ×3 (09:11→16:44)
[2016-10-31] MEDS: BABY ASPIRIN PO SCH (09:11)
[2016-10-31] MEDS: MIRALAX 3350 PO SCH (09:14)
[2016-10-31] MEDS: LOTRIMIN TP SCH (09:15)
--- NOTE | 2016-10-31 14:43 | Progress Note ---
Assessment and Plan Assessment and plan: Patient 86-year-old man history of dementia who presents with syncopal episode -Syncope most likely vasovagal versus autonomic dysfunction of the elderly: PT/ OT -Dementia -Bed bug infestation For placement, needs 3 day hospital stay for Medicare placement History Interval history: Patient seen and examined. Follow up on syncope. Overnight uneventful. No cp, sob, n/v or severe headaches. Imaging, old records, testing, labs, nursing notes reviewed. Hospitalist Physical - Physical exam Narrative exam: GEN: Thin frail man NAD, AWAKE, ALERT, ORIENTATED 3 CVS: RRR, NORMAL S1S2 LUNGS/CHEST: CTA B, NORMAL CHEST EXPANSION B, GOOD AIR ENTRY B ABD: SOFT NTND, GBS, NO REBOUND OR GUARDING EXT/SKIN: NO SIGNIFICANT EDEMA OR RASH MSK: FROM X 4 EXTREMITIES NEURO: CN 2-12 GROSSLY INTACT, NO new FOCAL DEFICITS PSY: CALM - Constitutional Vitals: Temp Pulse Resp BP Pulse Ox 98 F 83 18 111/62 96 10/31/16 08:00 10/31/16 08:00 10/31/16 08:00 10/31/16 08:00 10/31/16 08:00 General appearance: Present: no acute distress Results - Labs CBC & Chem 7: 10/30/16 08:03 10/30/16 08:03 Labs: Laboratory Last Values WBC 6.0 K/mm3 (4.5-11.0) 10/30/16 08:03 RBC 3.45 M/mm3 (3.65-5.03) L 10/30/16 08:03 Hgb 8.7 gm/dl (11.8-15.2) L 10/30/16 08:03 Hct 27.3 % (35.5-45.6) L 10/30/16 08:03 MCV 79 fl (84-94) L 10/30/16 08:03 MCH 25 pg (28-32) L 10/30/16 08:03 MCHC 32 % (32-34) 10/30/16 08:03 RDW 16.5 % (13.2-15.2) H 10/30/16 08:03 Plt Count 243 K/mm3 (140-440) 10/30/16 08:03 Lymph % (Auto) 40.9 % (13.4-35.0) H 10/30/16 08:03 [place] % (Auto) 11.7 % (0.0-7.3) H 10/30/16 08:03 Eos % (Auto) 1.3 % (0.0-4.3) 10/30/16 08:03 Baso % (Auto) 0.5 % (0.0-1.8) 10/30/16 08:03 Lymph # 2.5 K/mm3 (1.2-5.4) 10/30/16 08:03 [place] # 0.7 K/mm3 (0.0-0.8) 10/30/16 08:03 Eos # 0.1 K/mm3 (0.0-0.4) 10/30/16 08:03 Baso # 0.0 K/mm3 (0.0-0.1) 10/30/16 08:03 Add Manual Diff Complete 10/29/16 09:46 Total Counted 100 10/29/16 09:46 Seg Neutrophils % 45.6 % (40.0-70.0) 10/30/16 08:03 Seg Neuts % (Manual) 76.0 % (40.0-70.0) H 10/29/16 09:46 Band Neutrophils % 1.0 % 10/29/16 09:46 Lymphocytes % (Manual) 20.0 % (13.4-35.0) 10/29/16 09:46 Reactive Lymphs % (Man) 0 % 10/29/16 09:46 Monocytes % (Manual) 1.0 % (0.0-7.3) 10/29/16 09:46 Eosinophils % (Manual) 2.0 % (0.0-4.3) 10/29/16 09:46 Basophils % (Manual) 0 % (0.0-1.8) 10/29/16 09:46 Metamyelocytes % 0 % 10/29/16 09:46 Myelocytes % 0 % 10/29/16 09:46 Promyelocytes % 0 % 10/29/16 09:46 Blast Cells % 0 % 10/29/16 09:46 Nucleated RBC % Not Reportable 10/29/16 09:46 Seg Neutrophils # 2.8 K/mm3 (1.8-7.7) 10/30/16 08:03 Seg Neutrophils # Man 7.1 K/mm3 (1.8-7.7) 10/29/16 09:46 Band Neutrophils # 0.1 K/mm3 10/29/16 09:46 Lymphocytes # (Manual) 1.9 K/mm3 (1.2-5.4) 10/29/16 09:46 Abs React Lymphs (Man) 0.0 K/mm3 10/29/16 09:46 Monocytes # (Manual) 0.1 K/mm3 (0.0-0.8) 10/29/16 09:46 Eosinophils # (Manual) 0.2 K/mm3 (0.0-0.4) 10/29/16 09:46 Basophils # (Manual) 0.0 K/mm3 (0.0-0.1) 10/29/16 09:46 Metamyelocytes # 0.0 K/mm3 10/29/16 09:46 Myelocytes # 0.0 K/mm3 10/29/16 09:46 Promyelocytes # 0.0 K/mm3 10/29/16 09:46 Blast Cells # 0.0 K/mm3 10/29/16 09:46 WBC Morphology Not Reportable 10/29/16 09:46 Hypersegmented Neuts Not Reportable 10/29/16 09:46 Hyposegmented Neuts Not Reportable 10/29/16 09:46 Hypogranular Neuts Not Reportable 10/29/16 09:46 Smudge Cells Not Reportable 10/29/16 09:46 Toxic Granulation Not Reportable 10/29/16 09:46 Toxic Vacuolation Not Reportable 10/29/16 09:46 Dohle Bodies Not Reportable 10/29/16 09:46 Pelger-Huet Anomaly Not Reportable 10/29/16 09:46 Kristine Rods Not Reportable 10/29/16 09:46 Platelet Estimate Appears normal 10/29/16 09:46 Clumped Platelets Not Reportable 10/29/16 09:46 Plt Clumps, EDTA Not Reportable 10/29/16 09:46 Large Platelets Not Reportable 10/29/16 09:46 Giant Platelets Not Reportable 10/29/16 09:46 Platelet Satelliting Not Reportable 10/29/16 09:46 Plt Morphology Comment Not Reportable 10/29/16 09:46 RBC Morphology Not Reportable 10/29/16 09:46 Dimorphic RBCs Not Reportable 10/29/16 09:46 Polychromasia Not Reportable 10/29/16 09:46 Hypochromasia Not Reportable 10/29/16 09:46 Poikilocytosis 1+ 10/29/16 09:46 Anisocytosis 1+ 10/29/16 09:46 Microcytosis Not Reportable 10/29/16 09:46 Macrocytosis Not Reportable 10/29/16 09:46 Spherocytes Not Reportable 10/29/16 09:46 Pappenheimer Bodies Not Reportable 10/29/16 09:46 Sickle Cells Not Reportable 10/29/16 09:46 Target Cells Not Reportable 10/29/16 09:46 Tear Drop Cells Not Reportable 10/29/16 09:46 Ovalocytes Few 10/29/16 09:46 Helmet Cells Few 10/29/16 09:46 [place] Bodies Not Reportable 10/29/16 09:46 [place] Rings Not Reportable 10/29/16 09:46 Lisbet Cells Few 10/29/16 09:46 Bite Cells Not Reportable 10/29/16 09:46 Crenated Cell Not Reportable 10/29/16 09:46 Elliptocytes 1+ 10/29/16 09:46 Acanthocytes (Spur) 1+ 10/29/16 09:46 Rouleaux Not Reportable 10/29/16 09:46 Hemoglobin C Crystals Not Reportable 10/29/16 09:46 Schistocytes Not Reportable 10/29/16 09:46 Malaria parasites Not Reportable 10/29/16 09:46 Reji Bodies Not Reportable 10/29/16 09:46 Hem Pathologist Commnt No 10/29/16 09:46 Sodium 143 mmol/L (137-145) 10/30/16 08:03 Potassium 4.1 mmol/L (3.6-5.0) 10/30/16 08:03 Chloride 106.5 mmol/L (98-107) 10/30/16 08:03 Carbon Dioxide 25 mmol/L (22-30) 10/30/16 08:03 Anion Gap 16 mmol/L 10/30/16 08:03 BUN 10 mg/dL (9-20) 10/30/16 08:03 Creatinine 1.0 mg/dL (0.8-1.5) 10/30/16 08:03 Estimated GFR > 60 ml/min 10/30/16 08:03 BUN/Creatinine Ratio 10.00 % 10/30/16 08:03 Glucose 98 mg/dL (75-100) 10/30/16 08:03 POC Glucose 112 (70-105) H 10/31/16 11:48 Lactic Acid 2.20 mmol/L (0.7-2.0) H* 10/29/16 20:59 Calcium 8.7 mg/dL (8.4-10.2) 10/30/16 08:03 Magnesium 2.00 mg/dL (1.7-2.3) 10/29/16 09:46 Total Bilirubin 0.20 mg/dL (0.1-1.2) 10/30/16 08:03 AST 10 units/L (5-40) 10/30/16 08:03 ALT < 5 units/L (7-56) L 10/30/16 08:03 Alkaline Phosphatase 73 units/L (35-129) 10/30/16 08:03 Total Protein 6.3 g/dL (6.3-8.2) 10/30/16 08:03 Albumin 3.3 g/dL (3.9-5) L 10/30/16 08:03 Albumin/Globulin Ratio 1.1 % 10/30/16 08:03 TSH 1.160 mlU/mL (0.270-4.200) 10/29/16 09:46 Urine Color Yellow (Yellow) 10/29/16 11:01 Urine Turbidity Clear (Clear) 10/29/16 11:01 Urine pH 6.0 (5.0-7.0) 10/29/16 11:01 Ur Specific [place] 1.013 (1.003-1.030) 10/29/16 11:01 Urine Protein <15 mg/dl mg/dL (Negative) 10/29/16 11:01 Urine Glucose (UA) Neg mg/dL (Negative) 10/29/16 11:01 Urine Ketones Neg mg/dL (Negative) 10/29/16 11:01 Urine Blood Neg (Negative) 10/29/16 11:01 Urine Nitrite Neg (Negative) 10/29/16 11:01 Urine Bilirubin Neg (Negative) 10/29/16 11:01 Urine Urobilinogen < 2.0 mg/dL (<2.0) 10/29/16 11:01 Ur Leukocyte Esterase Neg (Negative) 10/29/16 11:01 Urine WBC (Auto) < 1.0 /HPF (0.0-6.0) 10/29/16 11:01 Urine RBC (Auto) 1.0 /HPF (0.0-6.0) 10/29/16 11:01 Urine Mucus Few /HPF 10/29/16 11:01 Salicylates < 0.3 mg/dL (2.8-20.0) L 10/29/16 09:46 Urine Opiates Screen Presumptive negative 10/29/16 11:01 Urine Methadone Screen Presumptive negative 10/29/16 11:01 Acetaminophen < 15.0 ug/mL (10.0-30.0) 10/29/16 09:46 Ur Barbiturates Screen Presumptive positive 10/29/16 11:01 Ur Phencyclidine Scrn Presumptive negative 10/29/16 11:01 Ur Amphetamines Screen Presumptive negative 10/29/16 11:01 U Benzodiazepines Scrn Presumptive negative 10/29/16 11:01 Urine Cocaine Screen Presumptive negative 10/29/16 11:01 U Marijuana (THC) Screen Presumptive negative 10/29/16 11:01 Drugs of Abuse Note Disclamer 10/29/16 11:01 Plasma/Serum Alcohol < 0.01 gm% (0-0.07) 10/29/16 09:46
[2016-10-31] MEDS: NACL 0.9% 1000 ML 1,000 ML IV SCH (20:55)
[2016-11-01] MEDS: NOVOLOG SUB-Q SCH ×3 (08:00→16:45)
[2016-11-01] MEDS: GLUCOPHAGE XR PO SCH (09:07)
[2016-11-01] MEDS: NORVASC PO SCH (10:05)
[2016-11-01] MEDS: TRADJENTA PO SCH (10:05)
[2016-11-01] MEDS: BABY ASPIRIN PO SCH (10:05)
[2016-11-01] MEDS: LOTRIMIN TP SCH ×2 (10:22→21:46)
[2016-11-01] MEDS: MIRALAX 3350 PO SCH (10:23)
--- NOTE | 2016-11-01 11:28 | Progress Note ---
Assessment and Plan Assessment and plan: Patient 86-year-old man history of dementia who presents with syncopal episode -Syncope most likely vasovagal versus autonomic dysfunction of the elderly: PT/ OT -Dementia -Bed bug infestation For placement, needs 3 day hospital stay for Medicare placement History Interval history: Patient seen and examined. Follow up on syncope. Overnight uneventful. No cp, sob, n/v or severe headaches. Imaging, old records, testing, labs, nursing notes reviewed. Hospitalist Physical - Physical exam Narrative exam: GEN: Thin frail man NAD, AWAKE, ALERT, ORIENTATED 3 CVS: RRR, NORMAL S1S2 LUNGS/CHEST: CTA B, NORMAL CHEST EXPANSION B, GOOD AIR ENTRY B ABD: SOFT NTND, GBS, NO REBOUND OR GUARDING EXT/SKIN: NO SIGNIFICANT EDEMA OR RASH MSK: FROM X 4 EXTREMITIES NEURO: CN 2-12 GROSSLY INTACT, NO new FOCAL DEFICITS PSY: CALM - Constitutional Vitals: Temp Pulse Resp BP Pulse Ox 98.9 F 83 18 133/71 97 11/01/16 10:00 11/01/16 10:05 11/01/16 10:00 11/01/16 10:05 11/01/16 10:00 General appearance: Present: no acute distress Results - Labs CBC & Chem 7: 10/30/16 08:03 10/30/16 08:03 Labs: Laboratory Last Values WBC 6.0 K/mm3 (4.5-11.0) 10/30/16 08:03 RBC 3.45 M/mm3 (3.65-5.03) L 10/30/16 08:03 Hgb 8.7 gm/dl (11.8-15.2) L 10/30/16 08:03 Hct 27.3 % (35.5-45.6) L 10/30/16 08:03 MCV 79 fl (84-94) L 10/30/16 08:03 MCH 25 pg (28-32) L 10/30/16 08:03 MCHC 32 % (32-34) 10/30/16 08:03 RDW 16.5 % (13.2-15.2) H 10/30/16 08:03 Plt Count 243 K/mm3 (140-440) 10/30/16 08:03 Lymph % (Auto) 40.9 % (13.4-35.0) H 10/30/16 08:03 [place] % (Auto) 11.7 % (0.0-7.3) H 10/30/16 08:03 Eos % (Auto) 1.3 % (0.0-4.3) 10/30/16 08:03 Baso % (Auto) 0.5 % (0.0-1.8) 10/30/16 08:03 Lymph # 2.5 K/mm3 (1.2-5.4) 10/30/16 08:03 [place] # 0.7 K/mm3 (0.0-0.8) 10/30/16 08:03 Eos # 0.1 K/mm3 (0.0-0.4) 10/30/16 08:03 Baso # 0.0 K/mm3 (0.0-0.1) 10/30/16 08:03 Add Manual Diff Complete 10/29/16 09:46 Total Counted 100 10/29/16 09:46 Seg Neutrophils % 45.6 % (40.0-70.0) 10/30/16 08:03 Seg Neuts % (Manual) 76.0 % (40.0-70.0) H 10/29/16 09:46 Band Neutrophils % 1.0 % 10/29/16 09:46 Lymphocytes % (Manual) 20.0 % (13.4-35.0) 10/29/16 09:46 Reactive Lymphs % (Man) 0 % 10/29/16 09:46 Monocytes % (Manual) 1.0 % (0.0-7.3) 10/29/16 09:46 Eosinophils % (Manual) 2.0 % (0.0-4.3) 10/29/16 09:46 Basophils % (Manual) 0 % (0.0-1.8) 10/29/16 09:46 Metamyelocytes % 0 % 10/29/16 09:46 Myelocytes % 0 % 10/29/16 09:46 Promyelocytes % 0 % 10/29/16 09:46 Blast Cells % 0 % 10/29/16 09:46 Nucleated RBC % Not Reportable 10/29/16 09:46 Seg Neutrophils # 2.8 K/mm3 (1.8-7.7) 10/30/16 08:03 Seg Neutrophils # Man 7.1 K/mm3 (1.8-7.7) 10/29/16 09:46 Band Neutrophils # 0.1 K/mm3 10/29/16 09:46 Lymphocytes # (Manual) 1.9 K/mm3 (1.2-5.4) 10/29/16 09:46 Abs React Lymphs (Man) 0.0 K/mm3 10/29/16 09:46 Monocytes # (Manual) 0.1 K/mm3 (0.0-0.8) 10/29/16 09:46 Eosinophils # (Manual) 0.2 K/mm3 (0.0-0.4) 10/29/16 09:46 Basophils # (Manual) 0.0 K/mm3 (0.0-0.1) 10/29/16 09:46 Metamyelocytes # 0.0 K/mm3 10/29/16 09:46 Myelocytes # 0.0 K/mm3 10/29/16 09:46 Promyelocytes # 0.0 K/mm3 10/29/16 09:46 Blast Cells # 0.0 K/mm3 10/29/16 09:46 WBC Morphology Not Reportable 10/29/16 09:46 Hypersegmented Neuts Not Reportable 10/29/16 09:46 Hyposegmented Neuts Not Reportable 10/29/16 09:46 Hypogranular Neuts Not Reportable 10/29/16 09:46 Smudge Cells Not Reportable 10/29/16 09:46 Toxic Granulation Not Reportable 10/29/16 09:46 Toxic Vacuolation Not Reportable 10/29/16 09:46 Dohle Bodies Not Reportable 10/29/16 09:46 Pelger-Huet Anomaly Not Reportable 10/29/16 09:46 Kristine Rods Not Reportable 10/29/16 09:46 Platelet Estimate Appears normal 10/29/16 09:46 Clumped Platelets Not Reportable 10/29/16 09:46 Plt Clumps, EDTA Not Reportable 10/29/16 09:46 Large Platelets Not Reportable 10/29/16 09:46 Giant Platelets Not Reportable 10/29/16 09:46 Platelet Satelliting Not Reportable 10/29/16 09:46 Plt Morphology Comment Not Reportable 10/29/16 09:46 RBC Morphology Not Reportable 10/29/16 09:46 Dimorphic RBCs Not Reportable 10/29/16 09:46 Polychromasia Not Reportable 10/29/16 09:46 Hypochromasia Not Reportable 10/29/16 09:46 Poikilocytosis 1+ 10/29/16 09:46 Anisocytosis 1+ 10/29/16 09:46 Microcytosis Not Reportable 10/29/16 09:46 Macrocytosis Not Reportable 10/29/16 09:46 Spherocytes Not Reportable 10/29/16 09:46 Pappenheimer Bodies Not Reportable 10/29/16 09:46 Sickle Cells Not Reportable 10/29/16 09:46 Target Cells Not Reportable 10/29/16 09:46 Tear Drop Cells Not Reportable 10/29/16 09:46 Ovalocytes Few 10/29/16 09:46 Helmet Cells Few 10/29/16 09:46 [place] Bodies Not Reportable 10/29/16 09:46 [place] Rings Not Reportable 10/29/16 09:46 Lisbet Cells Few 10/29/16 09:46 Bite Cells Not Reportable 10/29/16 09:46 Crenated Cell Not Reportable 10/29/16 09:46 Elliptocytes 1+ 10/29/16 09:46 Acanthocytes (Spur) 1+ 10/29/16 09:46 Rouleaux Not Reportable 10/29/16 09:46 Hemoglobin C Crystals Not Reportable 10/29/16 09:46 Schistocytes Not Reportable 10/29/16 09:46 Malaria parasites Not Reportable 10/29/16 09:46 Reji Bodies Not Reportable 10/29/16 09:46 Hem Pathologist Commnt No 10/29/16 09:46 Sodium 143 mmol/L (137-145) 10/30/16 08:03 Potassium 4.1 mmol/L (3.6-5.0) 10/30/16 08:03 Chloride 106.5 mmol/L (98-107) 10/30/16 08:03 Carbon Dioxide 25 mmol/L (22-30) 10/30/16 08:03 Anion Gap 16 mmol/L 10/30/16 08:03 BUN 10 mg/dL (9-20) 10/30/16 08:03 Creatinine 1.0 mg/dL (0.8-1.5) 10/30/16 08:03 Estimated GFR > 60 ml/min 10/30/16 08:03 BUN/Creatinine Ratio 10.00 % 10/30/16 08:03 Glucose 98 mg/dL (75-100) 10/30/16 08:03 POC Glucose 129 (70-105) H 11/01/16 09:02 Lactic Acid 2.20 mmol/L (0.7-2.0) H* 10/29/16 20:59 Calcium 8.7 mg/dL (8.4-10.2) 10/30/16 08:03 Magnesium 2.00 mg/dL (1.7-2.3) 10/29/16 09:46 Total Bilirubin 0.20 mg/dL (0.1-1.2) 10/30/16 08:03 AST 10 units/L (5-40) 10/30/16 08:03 ALT < 5 units/L (7-56) L 10/30/16 08:03 Alkaline Phosphatase 73 units/L (35-129) 10/30/16 08:03 Total Protein 6.3 g/dL (6.3-8.2) 10/30/16 08:03 Albumin 3.3 g/dL (3.9-5) L 10/30/16 08:03 Albumin/Globulin Ratio 1.1 % 10/30/16 08:03 TSH 1.160 mlU/mL (0.270-4.200) 10/29/16 09:46 Urine Color Yellow (Yellow) 10/29/16 11:01 Urine Turbidity Clear (Clear) 10/29/16 11:01 Urine pH 6.0 (5.0-7.0) 10/29/16 11:01 Ur Specific [place] 1.013 (1.003-1.030) 10/29/16 11:01 Urine Protein <15 mg/dl mg/dL (Negative) 10/29/16 11:01 Urine Glucose (UA) Neg mg/dL (Negative) 10/29/16 11:01 Urine Ketones Neg mg/dL (Negative) 10/29/16 11:01 Urine Blood Neg (Negative) 10/29/16 11:01 Urine Nitrite Neg (Negative) 10/29/16 11:01 Urine Bilirubin Neg (Negative) 10/29/16 11:01 Urine Urobilinogen < 2.0 mg/dL (<2.0) 10/29/16 11:01 Ur Leukocyte Esterase Neg (Negative) 10/29/16 11:01 Urine WBC (Auto) < 1.0 /HPF (0.0-6.0) 10/29/16 11:01 Urine RBC (Auto) 1.0 /HPF (0.0-6.0) 10/29/16 11:01 Urine Mucus Few /HPF 10/29/16 11:01 Salicylates < 0.3 mg/dL (2.8-20.0) L 10/29/16 09:46 Urine Opiates Screen Presumptive negative 10/29/16 11:01 Urine Methadone Screen Presumptive negative 10/29/16 11:01 Acetaminophen < 15.0 ug/mL (10.0-30.0) 10/29/16 09:46 Ur Barbiturates Screen Presumptive positive 10/29/16 11:01 Ur Phencyclidine Scrn Presumptive negative 10/29/16 11:01 Ur Amphetamines Screen Presumptive negative 10/29/16 11:01 U Benzodiazepines Scrn Presumptive negative 10/29/16 11:01 Urine Cocaine Screen Presumptive negative 10/29/16 11:01 U Marijuana (THC) Screen Presumptive negative 10/29/16 11:01 Drugs of Abuse Note Disclamer 10/29/16 11:01 Plasma/Serum Alcohol < 0.01 gm% (0-0.07) 10/29/16 09:46
[2016-11-01] MEDS: TYLENOL PO PRN (21:43)
[2016-11-02] MEDS: LOTRIMIN TP SCH ×2 (00:22→10:03)
[2016-11-02] MEDS: NACL 0.9% 1000 ML 1,000 ML IV SCH (00:23)
[2016-11-02 04:22] LABS: Hematocrit 24.3 % (35.5-45.6); Hemoglobin 7.9 gm/dl (11.8-15.2); Mean Corpuscular HGB Conc 33 % (32-34); Mean Corpuscular Volume 79 fl (84-94); Platelet Count 214 K/mm3 (140-440); Red Blood Count 3.09 M/mm3 (3.65-5.03); Red Cell Distribution Width 16.3 % (13.2-15.2)
[2016-11-02 04:24] LABS: Mean Corpuscular Hemoglobin 26 pg (28-32)
[2016-11-02 04:33] LABS: Anion Gap 16 mmol/L; Blood Urea Nitrogen 13 mg/dL (9-20); Calcium 8.7 mg/dL (8.4-10.2); Carbon Dioxide 23 mmol/L (22-30); Chloride 101.4 mmol/L (98-107); Glucose 113 mg/dL (75-100); Potassium 3.8 mmol/L (3.6-5.0); Sodium 137 mmol/L (137-145)
[2016-11-02] MEDS: MIRALAX 3350 PO SCH (10:01)
[2016-11-02] MEDS: NORVASC PO SCH (10:01)
--- NOTE | 2016-11-02 10:01 | Discharge Summary ---
Providers - Providers Date of Admission: 10/29/16 15:54 Date of discharge: 11/02/16 Attending physician: QUOC DOUGHERTY 10/29/16 16:46 Physical Therapy Evaluation and Treat [CONS] Routine Comment: Reason For Exam: autonomic imbalance 10/29/16 16:47 Occupational Therapy Evaluate and Treat [CONS] Routine Comment: Reason For Exam: imbalance Primary care physician: LINDA MENDOZA Hospitalization Reason for admission: syncope secondary to autonomic dysfunction, dementia Condition: Stable Pertinent studies: CT scan of the brain was unremarkable for any acute event. Findings were for changes consistent with senility Procedures: None Hospital course: Patient is a 78-year-old gentleman was a history of dementia was preparing breakfast when he passed out. EMS was called in. Patient was brought to the emergency Department. CT scan of the brain was unremarkable for any acute event. EKG showed normal sinus rhythm. Was given IV hydration, rashes identified on his body, commenced on cotrim ointment. Now Stable with no syncope or dizziness. Therefore been discharged today to long term facility. Has a history of diabetes mellitus controlled on sliding scale while on admission and on oral hypoglycemic agents. Disposition: DC/[place] SNF W [facility] CERT Core Measure Documentation - Palliative Care Palliative Care/ Comfort Measures: Not Applicable - Core Measures Any of the following diagnoses?: none Exam - Constitutional Vitals: Temp Pulse Resp BP Pulse Ox 98.2 F 85 20 113/68 97 11/01/16 21:19 11/01/16 21:19 11/01/16 21:43 11/01/16 21:19 11/01/16 10:00 General appearance: Present: no acute distress, well-nourished, other ( wheelchair bound) - EENT Eyes: Present: PERRL ENT: hearing intact, clear oral mucosa - Neck Neck: Present: supple, normal ROM - Respiratory Respiratory effort: normal Respiratory: bilateral: CTA - Cardiovascular Heart Sounds: Present: S1 & S2. Absent: rub, click - Extremities Extremities: pulses symmetrical, No edema Peripheral Pulses: within normal limits - Abdominal General gastrointestinal: Present: soft, non-tender, non-distended, normal bowel sounds Male genitourinary: Present: normal - Integumentary Integumentary: Present: clear, warm, dry - Musculoskeletal Musculoskeletal: gait normal, strength equal bilaterally - Psychiatric Psychiatric: appropriate mood/affect, intact judgment & insight - Neurologic Neurologic: CNII-XII intact, moves all extremities Plan Activity: advance as tolerated Diet: regular Special Instructions: record daily BP diary, record blood sugar diary Follow up with: LINDA MENDOZA MD [Primary Care Provider] - 3-5 Days Prescriptions: amLODIPine [Norvasc] 10 mg PO DAILY #30 tablet Aspirin [Aspirin BABY CHEW TAB] 81 mg PO QDAY #30 tab.chew Sitagliptin Phos/Metformin HCl [Janumet XR 100-1,000 mg] 1 tab PO QDAY #30 tbmp.24hr
[2016-11-02] MEDS: TRADJENTA PO SCH (10:02)
[2016-11-02] MEDS: BABY ASPIRIN PO SCH (10:02)
[2016-11-02] MEDS: GLUCOPHAGE XR PO SCH (10:03)
[2016-11-02] MEDS: NOVOLOG SUB-Q SCH ×3 (10:04→19:47)
[2016-11-02] MEDS: TYLENOL PO PRN (19:54)
[2016-11-03] MEDS: NOVOLOG SUB-Q SCH ×3 (10:38→16:28)
[2016-11-03] MEDS: GLUCOPHAGE XR PO SCH (10:40)
[2016-11-03] MEDS: MIRALAX 3350 PO SCH (10:40)
[2016-11-03] MEDS: BABY ASPIRIN PO SCH (10:40)
[2016-11-03] MEDS: NORVASC PO SCH (10:41)
[2016-11-03] MEDS: TRADJENTA PO SCH (10:43)
[2016-11-03] MEDS: LOTRIMIN TP SCH (16:28)
[2016-11-03] MEDS: TYLENOL PO PRN (20:05)
--- NOTE | 2016-11-03 20:14 | Progress Note ---
Assessment and Plan Patient 86-year-old man history of dementia who presents with syncopal episode -Syncope most likely vasovagal versus autonomic dysfunction of the elderly: PT/ OT, -Diabetes mellitus: Controlled on oral hypoglycemics -Dementia: Stable on Aricept -Bed bug infestation: On Lotrimin -Awaiting placement Subjective Date of service: 11/03/16 Principal diagnosis: syncope secondary to autonomic dysfunction, hypertension Interval history: Still pleasantly confused. Objective - Constitutional Vitals: Vital Signs - 12hr 11/03/16 11/03/16 09:39 10:41 Temperature 98.8 F Pulse Rate 66 Pulse Rate [ 66 From Monitor] Respiratory 20 Rate Blood Pressure 112/61 Blood Pressure 112/61 [Left Arm] General appearance: Present: no acute distress, well-nourished - EENT Eyes: PERRL, EOM intact - Neck Neck: supple, normal ROM - Respiratory Respiratory effort: normal Respiratory: bilateral: CTA - Cardiovascular Rhythm: regular Heart Sounds: Present: S1 & S2. Absent: gallop, rub Extremities: pulses intact, No edema, normal color, Full ROM - Gastrointestinal General gastrointestinal: Present: soft, non-tender, non-distended, normal bowel sounds - Genitourinary Male genitourinary: normal - Integumentary Integumentary: clear, warm, dry - Musculoskeletal Musculoskeletal: 1, strength equal bilaterally - Neurologic Neurologic: moves all extremities - Psychiatric Psychiatric: memory intact, appropriate mood/affect, intact judgment & insight - Labs CBC & Chem 7: 11/02/16 03:49 11/02/16 03:49
[2016-11-04] MEDS: LOTRIMIN TP SCH ×3 (06:01→11:53)
[2016-11-04] MEDS: NOVOLOG SUB-Q SCH ×2 (08:00→12:16)
[2016-11-04] MEDS: GLUCOPHAGE XR PO SCH (09:00)
[2016-11-04 09:28] VITALS: BP 104/65
--- NOTE | 2016-11-04 11:00 | Discharge Summary ---
Providers - Providers Date of Admission: 10/29/16 15:54 Date of discharge: 11/04/16 Attending physician: CLARA CARREON 10/29/16 16:46 Physical Therapy Evaluation and Treat [CONS] Routine Comment: Reason For Exam: autonomic imbalance 10/29/16 16:47 Occupational Therapy Evaluate and Treat [CONS] Routine Comment: Reason For Exam: imbalance 11/02/16 13:09 Physical Therapy Evaluation and Treat [CONS] Urgent Comment: Reason For Exam: PT eval for SNF placement 11/02/16 13:10 Occupational Therapy Evaluate and Treat [CONS] Urgent Comment: Reason For Exam: OT eval for SNF placement Primary care physician: LINDA MENDOZA Hospitalization Condition: Stable Hospital course: Patient is a 86-year-old man history of dementia who presents with syncopal episode -Syncope most likely vasovagal versus autonomic dysfunction of the elderly: PT/ OT -Dementia -Bed bug infestation For placement, needs 3 day hospital stay for Medicare placement Disposition: [place] SNF W [facility] C[facility] Time spent for discharge: 35 minutes Core Measure Documentation - Palliative Care Palliative Care/ Comfort Measures: Not Applicable - Core Measures Any of the following diagnoses?: none - VTE Discharge Requirements Deep Vein Thrombosis/Pulmonary Embolism Present on Admission: No Has pt received <5 days of overlap therapy or INR<2.0: No Anticoagulant overlap therapy prescribed at discharge: No Contraindication No Overlap Therapy order at DC: Not Indicated Exam - Physical Exam Narrative exam: GEN: Thin frail man NAD, AWAKE, ALERT, ORIENTATED 3 CVS: RRR, NORMAL S1S2 LUNGS/CHEST: CTA B, NORMAL CHEST EXPANSION B, GOOD AIR ENTRY B ABD: SOFT NTND, GBS, NO REBOUND OR GUARDING EXT/SKIN: NO SIGNIFICANT EDEMA OR RASH MSK: FROM X 4 EXTREMITIES NEURO: CN 2-12 GROSSLY INTACT, NO new FOCAL DEFICITS PSY: CALM - Constitutional Vitals: Temp Pulse Resp BP Pulse Ox 97.9 F 75 18 104/65 99 11/04/16 09:11/04/16 09:11/04/16 09:11/04/16 09:11/02/16 20:00 Plan Activity: up only with assistance, fall precautions, other (no strenous activites until cleared by PCP. ) Diet: regular Special Instructions: record daily BP diary, record blood sugar diary Follow up with: LINDA MENDOZA MD [Primary Care Provider] - 3-5 Days Prescriptions: amLODIPine [Norvasc] 10 mg PO DAILY #30 tablet Aspirin [Aspirin BABY CHEW TAB] 81 mg PO QDAY #30 tab.chew Sitagliptin Phos/Metformin HCl [Janumet XR 100-1,000 mg] 1 tab PO QDAY #30 tbmp.24hr
[2016-11-04] MEDS: NORVASC PO SCH (11:51)
[2016-11-04] MEDS: TRADJENTA PO SCH (11:51)
[2016-11-04] MEDS: BABY ASPIRIN PO SCH (11:52)
[2016-11-04] MEDS: MIRALAX 3350 PO SCH (11:52)
== END 2016-11-04 14:45 | DRG 74 ==
LOC: ED 09:16 → CC2 15:54
PROVIDERS: ADMIT Internal Medicine; ATTEND Internal Medicine
DX: G90.8 Other disorders of autonomic nervous system (principal); M54.31 Sciatica, right side; I10 Essential (primary) hypertension; M54.9 Dorsalgia, unspecified; G89.29 Other chronic pain; D64.9 Anemia, unspecified; G30.9 Alzheimer's disease, unspecified; B88.8 Other specified infestations; E11.649 Type 2 diabetes mellitus with hypoglycemia without coma; F02.80 Dementia in other diseases classified elsewhere, unspecified severity, without behavioral disturbance, psychotic disturbance, mood disturbance, and anxiety; Z74.01 Bed confinement status
CPT/HCPCS: 36415; 70450; 80048; 80053; 80307; 80320; 81001; 82140; 82962; 83735; 84443; 85007; 85025; 85027; 93005; 93010; 93880; 96360; 96361; 96372; G0480; G8978-GP; G8979-GP; J1650; J1815; J7030